=== PATIENT | female | born 1980 | race Caucasian/White ===

== ENCOUNTER 2019-04-01 07:41 | Emergency (ER) | payer OTHER ==
[~2019-04-01] VITALS: Ht 160 cm; Wt 99.8 kg
--- NOTE | 2019-04-01 08:14 | NUR ---
PATIENT WITH C/O LEFT KNEE AREA PAIN SINCE SATURDAY, WORST SINCE YESTERDAY. - TRAUMA. PATIENT A/O X 3, AMBULATORY. NO ACUTE DISTRESS. NO CHANGES IN LOC NOTED. RESTING ON BED. WILL CONTINUE TO MONITOR
--- NOTE | 2019-04-01 08:35 | NUR ---
US TECH AT BEDSIDE
--- NOTE | 2019-04-01 09:07 | NUR ---
BALL THREAD MACHINE TENDER AT BEDSIDE
--- NOTE | 2019-04-01 09:55 | NUR ---
SPLINT APPLIED BY [employer] HOST[employer]ER TO LEFT KNEE. CRUTCHES PROVIDED TO PATIENT. PROPER USE AND BODY MECHANICS EXPLAINED
--- NOTE | 2019-04-01 10:16 | NUR ---
Patient discharged to home in stable condition. Written and verbal after care instructions given. Patient verbalizes understanding of instruction.
[2019-04-01 10:17] VITALS: BP 138/84
== END 2019-04-01 10:18 | disposition home or self-care (01) ==
LOC: ER 07:41
DX: S89.82XA Other specified injuries of left lower leg, initial encounter (principal); Z88.0 Allergy status to penicillin; X58.XXXA Exposure to other specified factors, initial encounter; Y93.89 Activity, other specified; Y92.89 Other specified places as the place of occurrence of the external cause; Y99.8 Other external cause status
CPT/HCPCS: 73564-TC; 93971-TC